=== PATIENT | female | born 1975 | race Caucasian/White ===

== ENCOUNTER 2017-08-22 08:54 | Emergency (ER) | payer OTHER ==
[~2017-08-22] VITALS: Ht 157.5 cm; Wt 85.7 kg
[2017-08-22] MEDS ORDERED: BACTRIM DS TAB1 EACH PO (11:53)
[2017-08-22] MEDS ORDERED: BENADRYL50 MG PO (11:53)
[2017-08-22] MEDS ORDERED: CENTANY30 GM TOP (11:53)
== END 2017-08-22 12:55 | disposition home or self-care (01) ==
LOC: EDSEX 08:54 → ER 08:54
DX: L29.8 Other pruritus (principal)

== ENCOUNTER → 2020-09-15 08:22 | Outpatient (CLI) | payer OTHER ==
[~2020-09-15 08:22] MED LIST: BACTRIM DS TAB1 EACH PO; BENADRYL50 MG PO; CENTANY30 GM TOP
== END | disposition home or self-care (01) ==
LOC: PPH VACUNA 08:22
DX: Z23 Encounter for immunization (principal)

== ENCOUNTER 2021-03-19 09:43 | Emergency (ER) | payer OTHER ==
[~2021-03-19] VITALS: Ht 162.6 cm; Wt 89.8 kg
[2021-03-19] MEDS ORDERED: ZITHROMAX500 MG PO (13:48)
== END 2021-03-19 14:17 | disposition home or self-care (01) ==
LOC: ER 09:43
DX: B34.9 Viral infection, unspecified (principal); Z03.818 Encounter for observation for suspected exposure to other biological agents ruled out; R53.81 Other malaise; R05.9 Cough, unspecified